=== PATIENT | male | born 1935 | race Caucasian/White ===

== ENCOUNTER 2019-03-13 18:33 | Emergency (ER) | payer MEDICARE, OTHER | END 2019-03-13 21:26 | disposition home or self-care (01) | LOC: ER 18:33 ==

== ENCOUNTER 2019-03-15 16:20 | Emergency (ER) | payer MEDICARE, OTHER ==
[~2019-03-15] VITALS: Ht 180.3 cm; Wt 88.0 kg
[~2019-03-15 16:20] MED LIST: LEVO500T2 PO
--- NOTE | 2019-03-15 16:44 | NUR ---
pt here with " grand daughter" she is staying in w/r. dr thurston pt same time. pt has had a zapien in since yesterday and is currently on antibiotic. pt relates zapien stopped draining 13oo today. flushed the zapien and got out strings of ? blood and zapien started to drain properly. pt alert [facility] 15 with no acute sighns of dyspnea noted. dain thurston pt 1421.
--- NOTE | 2019-03-15 16:55 | ED GU-Male ---
General Stated Complaint: CATHETER CLOGGED UP Source: patient Exam Limitations: no limitations History of Present Illness Date Seen by Provider: Mar 15, 2019 Time Seen by Provider: 16:51 Initial Comments To ER Record. Using her last hematuria, passing large clots. A catheter was placed. He's been leaking around the catheter since about 1 PM today. He follows with the [facility], he is on Levaquin. Timing/Duration: this afternoon Severity/Quality: moderate Radiation: none Activities at Onset: none Associated Symptoms: denies symptoms Allergies and Home Medications Allergies Coded Allergies: No Known Drug Allergies (Unverified , 03/13/19) Home Medications Levofloxacin 500 Mg Tablet, 500 MG PO every other day Prescribed by: JT MATHIS on 03/13/197 Patient Home Medication List Home Medication List Reviewed: Yes Review of Systems Review of Systems Constitutional: see HPI EENTM: see HPI Respiratory: no symptoms reported Cardiovascular: no symptoms reported Genitourinary: see HPI Musculoskeletal: no symptoms reported Skin: no symptoms reported Psychiatric/Neurological: No Symptoms Reported Endocrine: No Symptoms Reported Hematologic/Lymphatic: No Symptoms Reported Past Wtjzjgy-Chrmhr-Lnwexc Hx Patient Social History Recent Foreign Travel: No Contact w/Someone Who Travel: No Physical Exam Vital Signs Capillary Refill : Height, Weight, BMI Height: 5'11.00" Weight: 194lbs. oz. [id number]; BMI Method:Stated General Appearance: WD/WN, no apparent distress Respiratory: no respiratory distress, no accessory muscle use Gastrointestinal: normal bowel sounds, non tender Male: other (Issa catheter remains in place, aseptic technique was used and a 60 cc syringe was attached to the catheter, suction was applied and External lumen of the catheter was aspirated which is likely a clot of red cells from the bleeding he was having. Urine is now a light brownish in color, no bright red or obvious bleeding.) Neurologic/Psychiatric: alert, normal mood/affect, oriented x 3 Skin: normal color, warm/dry Progress/Results/Core Measures Suspected Sepsis SIRS Temperature: Pulse: Respiratory Rate: Blood Pressure / Mean: Results/Orders Vital Signs/I&O Capillary Refill : Departure Communication (Admissions) Issa catheter was draining efficiently and reattached to the leg bag Impression Primary Impression: Obstruction of urethral catheter Qualified Codes: T83.091A - Other mechanical complication of indwelling urethral catheter, initial encounter Disposition: 01 HOME, SELF-CARE Condition: Stable Departure-Patient Inst. Decision time for Depature: 16:54 Referrals: NO,LOCAL PHYSICIAN (PCP/Family) Primary Care Physician Patient Instructions: NO INSTRUCTIONS GIVEN Add. Discharge Instructions: 1. Return to ER for any concerns 2. Follow-up with your doctor next week 3. JT MATHIS APRN Mar 15, 2019 16:55
[2019-03-15 17:06] VITALS: BP 170/78
--- NOTE | 2019-03-15 17:06 | NUR ---
d/c instructions to pt. told to read all papers. no scripts given. pt left ambulatory by self. pt knows f/u. i went over the handtyped by information on the chart. pt had no iv.
== END 2019-03-15 17:06 | disposition home or self-care (01) ==
LOC: EDUNIT# 16:20 → ER 16:22
DX: T83.091A Other mechanical complication of indwelling urethral catheter, initial encounter (principal)
CPT/HCPCS: 99282